=== PATIENT | male | born 1960 | race Caucasian/White ===

== ENCOUNTER 2016-10-08 13:26 | Day surgery (SDC) | payer OTHER ==
[~2016-10-08] VITALS: Ht 172.7 cm; Wt 72.1 kg
[~2016-10-08 13:26] MED LIST: 0.9% Sodium Chloride 1,000 ML IV PRN; BUPR200T34 PO; IBUP400T22 PO; MULT-666 PO; Sodium Chloride LOK Flush 10 mL Syringe IV PRN; fentaNYL-PF 50 mCg/mL 2 mL Inj IVPUSH PRN
[2016-10-08 14:02] VITALS: BP 127/86; PULSE 64; RESP 16; O2SAT 99
[2016-10-08] MEDS: 0.9% Sodium Chloride 1,000 ML IV PRN ×2 (14:27→16:30)
--- NOTE | 2016-10-08 14:49 | PCM.ENDEGD ---
EGD Date of Service: Oct 08, 2016 Physician Cruzito Rojas MD Pre Procedure Diagnosis: Abdominal pain and diarrhea Post Procedure Dx & Findings: Gastritis esophagitis Procedure Esophagogastroduodenoscopy PROCEDURE IN DETAIL: After proper sedation, Olympus video endoscope was inserted into patient's mouth and esophagus was successfully intubated. Scope introduced esophagus. Esophagus showed normal shiny whitish mucosa consistent with squamous cell component. Z line was not intact at 38 cm from the incisors. There was evidence of irritation and inflammation. Biopsies obtained. The scope further advanced to the stomach. Stomach showed atrophic mucosa with some redness and irritation consistent with gastritis. These are obtained. The distribution was in the antrum as well as the body of the stomach.. Cardia fundus body antrum pylorus were all visualized. Retroflexion was done. Stomach was easily inflated and deflatable using air. Scope further events to the distal duodenum. Duodenum revealed normal villous structures with normal appearing folds without any mass ulcer erosion. 5 biopsies were obtained in the duodenum to rule out celiac disease. Impression Esophagitis biopsy obtained Gastritis biopsy obtained Normal duodenum biopsy obtained for celiac Recommendation Await biopsies Presedation Assessment Risks and Benefits Informed consent was obtained from the patient after all risks and benefits including but not limited to drug reaction, infection, pain, bleeding, perforation, as well as alternatives were discussed. Patient monitoring Continuous pulse oximetry, cardiac monitoring, blood pressure monitoring, IV access, and oxygen at 2L per nasal cannula. Periprocedural Fentanyl: Fentanyl 125mcg Incrementally Midazolam: Midazolam 6mg Incrementally Complications There were no periprocedural complications identified. Post Procedure Plan Post Procedure Recommendations 1. Restrict activities today. 2. Resume normal activities in the morning. 3. Resume medications. 4. GERD behavioral modification: - Avoid fatty, acidic, spicy, large meals - Do not lie down after meals - Do not eat or drink anything for at least 2 1/2 hours before going to bed at night - Discontinue tobacco and alcohol - Decrease or avoid caffeine - Avoid chocolate and mints - Decrease weight - Avoid aspirin and non steroidal anti-inflammatory agents (NSAID) such as Aleve, Advil, Mobic, Naproxen, Ibuprofen, etc 5. Add proton pump inhibitor. Take 30 minutes before 1st meal of the day. 6. Patient informed of normal post procedure side effects as bloating, drowsiness, blood streaking in the stool 7. If gastric biopsy reveal H.pylori, continue with appropriate treatment 8. If small bowel biopsy reveals celiac, continue with appropriate treatment 9. Please don't hesitate to call me with any questions Cruzito Rojas MD Oct 08, 2016 14:49
--- NOTE | 2016-10-08 15:18 | PCM.ENDCOL ---
Colonoscopy Date of Service: Oct 08, 2016 Physician Cruzito Rojas MD Pre Procedure Diagnosis: Diarrhea and abdominal pain Post Procedure Dx & Findings: Polyps diverticuli hemorrhoids Procedure Colonoscopy PROCEDURE IN DETAIL: Prep adequate Withdrawal time 16 minutes After unremarkable rectal examination the Olympus video colonoscope was inserted patient's anal canal and was advanced to cecum. Landmarks were identified including the ileocecal valve and appendiceal orifice. Scope further once the terminal ileum. Advanced 10 cm. The visualized terminal ileum showed normal villous structures without any ulcer mass erosion. Scope was withdrawn systematically. Visualized colonic mucosa showed healthy shiny mucosa with normal healthy-appearing vasculature. In the ascending colon, there were 2 polyps. One was 2 mm in size which was removed completely using cold snare and the other was a 1 mm in size which was removed completely using cold forceps. In the rectum there was a 8 mm polyp which was hot snared. It was completely removed. In the sigmoid colon there are a few small diverticuli. Random biopsies are taken from the cecum to the rectum for workup of diarrhea. In the rectum retroflexion was done which showed hemorrhoids. Anal canal was inspected carefully on the way out and hemorrhoids noted. Impression Polyps 3 status post complete removal Diverticuli Hemorrhoids Normal colon Normal TI Recommendation Repeat colonoscopy 3 years Diverticular diet I will obtain GI clinic with Keysha Julio Presedation Assessment Risks and Benefits Informed consent was obtained from the patient after all risks and benefits including but not limited to drug reaction, infection, pain, bleeding, perforation, as well as alternatives were discussed. Patient monitoring Continuous pulse oximetry, cardiac monitoring, blood pressure monitoring, IV access, and oxygen at 2L per nasal cannula. Complications There were no periprocedural complications identified. Post Procedure Plan Post Procedure Recommendations 1. Restrict activities today. 2. Resume normal activities in the morning. 3. Resume medications. 4. Patient informed of normal post procedure side effects as bloating, drowsiness, blood streaking in the stool. 5. average risk CRCS. If colon polyps come back as: -Hyperplastic- can repeat colonoscopy in 10 years -Tubular adenoma- repeat colonoscopy in 5 years -Tubulovillous/villous adenoma- repeat colonoscopy in 3 years -If any dysplasia- return to clinic as soon as possible 6. Please don't hesitate to call me with any questions. Cruzito Rojas MD Oct 08, 2016 15:17
[2016-10-08 15:19] VITALS: BP 100/65; PULSE 55; RESP 14; O2SAT 98
[2016-10-08 15:33] VITALS: BP 96/58; PULSE 59; RESP 13; O2SAT 97
[2016-10-08 15:43] VITALS: BP 107/60; PULSE 59; RESP 15; O2SAT 97
[2016-10-08 15:53] VITALS: BP 106/76; PULSE 60; RESP 15; O2SAT 98
--- NOTE | 2016-10-10 17:40 | PATH ---
SURGICAL PATHOLOGY Attending Physician:Cruzito Rojas M.D. CASE STATUS: Signed Out PATIENT NAME: JOAQUIN NORRIS PID: [id number] : 1960 DATE COLLECTED:10/08/2016 00:00 SPECIMEN: 1: Duodenum, Biopsy 2: Stomach, Polyp, Biopsy 3: Esophagus, Biopsy 4: Colon, Biopsy 5: Colon, Biopsy 6: Rectum, Biopsy CLINICAL HISTORY: 1. RANDOM DUODENUM 2. GASTRIC (STOMACH) 3. DISTAL ESOPHAGUS 4. RANDOM COLON 5. ASCENDING COLON POLYP 6. RECTUM POLYP FINAL DIAGNOSIS: 1. Duodenum, Random Biopsies: Duodenal mucosa with no diagnostic abnormality. Negative for active inflammation, features of sprue, dysplasia and malignancy. 2. Stomach, Biopsy: Body-type mucosa with no diagnostic abnormality. Negative for Helicobacter organisms. Negative for intestinal metaplasia. Negative for dysplasia and malignancy. 3. Distal Esophagus, Biopsy: Squamocolumnar junctional mucosa with no diagnostic abnormality. Negative for intestinal metaplasia. Negative for dysplasia and malignancy. 4. Random Colon, Biopsies: Colonic mucosa with no diagnostic abnormality. Negative for active, chronic and microscopic colitis. Negative for dysplasia and malignancy. 5. Ascending Colon, Polyp, Biopsy: Tubular adenoma. 6. Rectum, Polyp, Biopsy: Traditional serrated adenoma. See comment. No evidence of malignancy or high-grade dysplasia. ICD10 D12.2; D12.8 NOTE: Part 6: Current surveillance guidelines recommend that a traditional serrated adenoma should be managed similar to an advanced adenoma. Complete polypectomy and shortened surveillance interval are recommended. As part of routine coding quality analyst, part 6 was also reviewed by Dr. Mickey Prado, who agrees with the above interpretation. GROSS DESCRIPTION: The specimen is received in six formalin filled containers labeled with the patient's name. 1). The specimen is sublabeled "random duodenum" and consists of 4 portions of tissue which aggregate to 0.5 x 0.3 x 0.2 CM. The specimen is entirely submitted in cassette 1A. 2). The specimen is sublabeled "gastric (stomach)" and consists of 3 portions of tissue which aggregate to 0.3 x 0.3 x 0.2 CM. The specimen is entirely submitted in cassettes 2A. 3). The specimen is sublabeled "distal esophagus" and consists of a less than 0.1 CM portion of tissue which is entirely submitted in cassette 3A. 4). The specimen is sublabeled "random colon" and consists of multiple portions of tissue which aggregate to 0.4 x 0.4 x 0.3 CM. The specimen is entirely submitted in cassette 4A. 5). The specimen is sublabeled "ascending colon polyp" and consists of 4 portions of tissue which aggregate to 0.3 x 0.3 x 0.3 CM. The specimen is entirely submitted in cassette 5A. 6). The specimen is sublabeled "rectal polyp" and consists of 2 portions of tissue and debris which aggregate to 0.6 x 0.6 x 0.5 CM. The specimen is totally submitted in cassette 6A. 10/09/2016 [facility] ICD-9 CODES: CPT CODES: 1: 95317 2: 06835 3: 98113 4: 39006 5: 94592 6: 75651 Electronically Signed Out Jenni Cihu MD [facility] Pathology [facility], [place] [address] Technical component performed at [facility], [address] [place] [address] Ave[address], [address]
== END 2016-10-08 23:59 | disposition home or self-care (01) ==
LOC: END 13:26
PROVIDERS: ATTEND Internal Medicine
DX: D12.2 Benign neoplasm of ascending colon (principal); D12.8 Benign neoplasm of rectum; K57.30 Diverticulosis of large intestine without perforation or abscess without bleeding; K64.8 Other hemorrhoids; K29.70 Gastritis, unspecified, without bleeding; K20.9 Esophagitis, unspecified; K21.9 Gastro-esophageal reflux disease without esophagitis